=== PATIENT | female | born 1975 | race Caucasian/White ===

== ENCOUNTER 2023-10-14 15:36 | Inpatient (IN) | payer SELFPAY ==
[~2023-10-14] VITALS: Ht 162.6 cm; Wt 70.3 kg
[2023-10-14] MEDS ORDERED: ONDANSETRON HCL 4MG/2ML INJ IV STA (15:46)
[2023-10-14] MEDS: SODIUM CHLORIDE 0.9% 1,000 ML IV ONE (16:00)
[2023-10-14 17:07] LABS: ALANINE AMINOTRANSFERASE 13 IU/L (10-49); ALBUMIN 4.2 g/dL (3.2-4.8); ASPARTATE AMINOTRANSFERASE 38 IU/L (<34); BILIRUBIN TOTAL 0.2 mg/dL (0.1-1.0); CALCIUM 8.4 mg/dL (8.7-10.4); CARBON DIOXIDE 25 mEq/L (21-32); CHLORIDE 106 mEq/L (98-107); CREATININE 0.6 mg/dL (0.6-1.0); GLUCOSE 103 mg/dL (70-105); POTASSIUM 4.5 mEq/L (3.5-5.1); PROTEIN TOTAL 6.8 g/dL (6.0-8.3); SODIUM 138 mEq/L (136-145); TROPONIN I HIGH SENSITIVITY 6 ng/L (3.0-34); UREA NITROGEN BLOOD 11 mg/dL (9-23)
[2023-10-14 17:08] LABS: HCG SCREEN NEGATIVE
[2023-10-14] MEDS: NOREPINEPHRINE 8MG/250ML PMX 250 ML IV PRN (17:14)
[2023-10-14] MEDS: FENTANYL CITRATE/PF 50MCG/ML 2ML VIAL IV ONE (17:48)
[2023-10-14] MEDS ORDERED: PROPOFOL 200MG/20ML VIAL IV ONE (19:02)
[2023-10-14] MEDS ORDERED: MIDAZOLAM HCL 2 MG/2 ML VIAL ONE (19:03)
[2023-10-14] MEDS ORDERED: ONDANSETRON HCL 4MG/2ML INJ ONE (19:06)
[2023-10-14] MEDS ORDERED: DEXAMETHASONE 4MG/ML 1ML VIAL ONE (19:06)
[2023-10-14] MEDS ORDERED: SUCCINYLCHOLINE CHLORIDE 200MG/10ML IV ONE (19:06)
[2023-10-14] MEDS ORDERED: ROCURONIUM BROMIDE 10MG/ML VIAL 5ML IV ONE (19:07)
[2023-10-14] MEDS ORDERED: GLYCOPYRROLATE 0.2 MG/ML 2ML VIAL ONE (19:07)
[2023-10-14] MEDS ORDERED: FENTANYL CITRATE/PF 50MCG/ML 2ML VIAL ONE ×2 (19:08→20:20)
[2023-10-14] MEDS ORDERED: FENTANYL CITRATE/PF 50MCG/ML 2ML VIAL IV PRN (19:15)
[2023-10-14] MEDS ORDERED: SUGAMMADEX SODIUM 200 MG/2 ML VIAL IV NR (19:15)
[2023-10-14] MEDS ORDERED: MEPERIDINE HCL/PF 25MG/ML CPJ IV PRN (19:15)
[2023-10-14] MEDS ORDERED: ONDANSETRON HCL 4MG/2ML INJ IV PRN ×2 (19:15)
[2023-10-14] MEDS ORDERED: HYDROMORPHONE HCL/PF 2MG/ML CPJ IV PRN (19:15)
[2023-10-14] MEDS ORDERED: CLINDAMYCIN 600MG PREMIX 50 ML IV ONE (19:18)
[2023-10-14] MEDS ORDERED: KETOROLAC 30MG/ML VIAL ONE (19:28)
[2023-10-14] MEDS ORDERED: POLYMYXIN B SULFATE 500000 UNITS/VIAL ONE (19:29)
[2023-10-14] MEDS ORDERED: SKIN ADHESIVE 0.7 GM EA TOP ONE ×2 (19:29→19:30)
[2023-10-14] MEDS ORDERED: BUPIVACAINE HCL/PF 0.5% (5MG/ML) 10ML ONE (19:30)
[2023-10-14 19:58] LABS: BASOPHILS % 0.2 % (0.0-2.0); EOSINOPHILS % 0.1 % (0.0-5.0); HEMATOCRIT. 26.8 % (36.0-48.0); HEMOGLOBIN. 8.2 g/dL (12.0-16.0); LYMPHOCYTES % 9.7 % (20.0-50.0); MEAN CORPUSCULAR HEMOGLOBIN 20.1 pg (28.0-32.0); MEAN CORPUSCULAR HGB CONC 30.6 g/dL (31.0-37.0); MEAN CORPUSCULAR VOLUME 65.9 fL (81.0-99.0); MEAN PLATELET VOLUME 8.3 fl (7.4-10.4); MONOCYTES % 2.1 % (2.0-8.0); NEUTROPHILS % 87.9 % (40.0-76.0); PLATELET 346 x1000/uL (130-400); RED BLOOD CELL COUNT 4.07 mill/uL (4.2-5.4); RED CELL DISTRIBUTION WIDTH 25.3 % (11.6-14.6); WHITE BLOOD COUNT 11.6 x1000/uL (4.5-11.0)
[2023-10-14 20:00] LABS: ADD RBC MORPHOLOGY YES; DIFFERENTIAL COMMENT 1
[2023-10-14 20:18] LABS: HYPOCHROMASIA 2+; PLATELET ESTIMATE NORMAL
[2023-10-14 20:19] LABS: ANISOCYTOSIS 2+; MICROCYTOSIS 3+; OVALOCYTES 1+
[2023-10-14] MEDS ORDERED: PIPERACILLIN/TAZO 3.375G/50ML 50 ML IV SCH (22:00)
[2023-10-14] MEDS: MORPHINE SULFATE 4 MG/ML CPJ (NOT FOR IM USE) IV PRN (22:04)
[2023-10-14] MEDS ORDERED: CLONIDINE 0.1MG TABLET PO PRN (22:30)
[2023-10-14] MEDS: SODIUM CHLORIDE 0.9% 1,000 ML IV SCH (22:30)
[2023-10-14] MEDS: DEXT 5%/0.45% NACL KCL 20MEQ/L 1,000 ML IV SCH (22:54)
[2023-10-14 23:26] VITALS: BP 91/45; PULSE 88; RESP 18; TEMP 98.6
[2023-10-14 23:47] LABS: D-DIMER 1.99 mg/L FEU (<0.50); PROTHROMBIN TIME 11.2 sec (9.6-11.0)
[2023-10-15] VITALS: BP 98/40; PULSE 88; RESP 20; TEMP 98.6
[2023-10-15 00:08] LABS: TROPONIN I HIGH SENSITIVITY 7 ng/L (3.0-34)
[2023-10-15 04:00] VITALS: BP 90/46; PULSE 90; RESP 20; TEMP 99.7
[2023-10-15] MEDS: MORPHINE SULFATE 2 MG/ML CPJ (NOT FOR IM USE) IV PRN (06:44)
[2023-10-15 08:00] VITALS: BP 123/61; PULSE 91; RESP 17; TEMP 101.7
[2023-10-15] MEDS: METRONIDAZOLE 500 MG PREMIX 100 ML IV SCH (08:58)
[2023-10-15] MEDS: ACETAMINOPHEN 325MG TABLET PO PRN (08:59)
[2023-10-15] MEDS: LEVOFLOXACIN 750MG PREMIX 150 ML IV SCH (08:59)
[2023-10-15] MEDS ORDERED: PIPERACILLIN/TAZO 3.375G/50ML 50 ML IV SCH (09:00)
[2023-10-15] MEDS: CLINDAMYCIN 600MG PREMIX 50 ML IV SCH (10:47)
[2023-10-15 12:00] VITALS: BP 120/70; PULSE 83; RESP 18; TEMP 100
[2023-10-15 16:00] VITALS: BP 101/45; PULSE 95; RESP 17; TEMP 102.2
[2023-10-15] MEDS: HYDROCODONE/ACETAMINOPHEN 5/325MG TABLET PO PRN (17:12)
[2023-10-15 20:00] VITALS: BP 100/44; PULSE 101; RESP 19; TEMP 102.6
[2023-10-16] VITALS: BP 95/41; PULSE 102; RESP 19; TEMP 100.6
[2023-10-16 04:00] VITALS: BP 99/47; PULSE 97; RESP 19; TEMP 99.7
[2023-10-16 07:26] LABS: CALCIUM 8.1 mg/dL (8.7-10.4); CARBON DIOXIDE 23 mEq/L (21-32); CHLORIDE 107 mEq/L (98-107); CREATININE 0.6 mg/dL (0.6-1.0); GLUCOSE 120 mg/dL (70-105); POTASSIUM 3.3 mEq/L (3.5-5.1); SODIUM 135 mEq/L (136-145); UREA NITROGEN BLOOD 8 mg/dL (9-23)
[2023-10-16 07:32] LABS: HEMATOCRIT. 23.7 % (36.0-48.0); HEMOGLOBIN. 7.4 g/dL (12.0-16.0); MEAN CORPUSCULAR HEMOGLOBIN 20.8 pg (28.0-32.0); MEAN CORPUSCULAR HGB CONC 31.2 g/dL (31.0-37.0); MEAN CORPUSCULAR VOLUME 66.6 fL (81.0-99.0); MEAN PLATELET VOLUME 9.1 fl (7.4-10.4); PLATELET 241 x1000/uL (130-400); RED BLOOD CELL COUNT 3.56 mill/uL (4.2-5.4); RED CELL DISTRIBUTION WIDTH 25.8 % (11.6-14.6); WHITE BLOOD COUNT 13.5 x1000/uL (4.5-11.0)
[2023-10-16 08:23] LABS: DIFFERENTIAL COMMENT 1
[2023-10-16 10:21] LABS: ANISOCYTOSIS 2+; HYPOCHROMASIA 2+; MICROCYTOSIS 2+; OVALOCYTES 1+; PLATELET ESTIMATE NORMAL
[2023-10-16] MEDS ORDERED: IOHEXOL-350 100 ML BOTTLE ONE (12:53)
[2023-10-16] MEDS ORDERED: SODIUM CHLORIDE 0.9% 1,000 ML IV SCH (14:46)
[2023-10-16] MEDS: POTASSIUM CHLORIDE 20MEQ TABLET SR PO NR (14:54)
[2023-10-16] MEDS ORDERED: NALOXONE HCL 0.4MG/ML VIAL IV PRN (15:00)
[2023-10-16 17:37] LABS: CLARITY URINE CLEAR (CLEAR); COLOR URINE YELLOW (YELLOW); GLUCOSE URINE NEGATIVE (NEGATIVE); KETONES URINE NEGATIVE (NEGATIVE); LEUKOCYTE ESTERASE URINE TRACE (NEGATIVE); NITRITE URINE NEGATIVE (NEGATIVE); OCCULT BLOOD URINE NEGATIVE (NEGATIVE); PROTEIN URINE TRACE (NEGATIVE); SPECIFIC GRAVITY URINE 1.014 (1.005-1.030); UROBILINOGEN URINE 0.2 E.U./dL (0.2-1.0)
[2023-10-16 18:20] LABS: BACTERIA URINE 1+; RBC URINE 0-2 /hpf (0-2); SQUAMOUS EPITHELIAL CELL URINE 1+ /lpf (RARE/1+); WBC URINE 0-2 /hpf (0-2)
[2023-10-16 20:00] VITALS: BP 101/47; PULSE 109; RESP 18; TEMP 101.5
[2023-10-16] MEDS ORDERED: IBUPROFEN 800MG TABLET PO PRN (23:45)
[2023-10-17] VITALS: BP 107/50; PULSE 89; RESP 19; TEMP 101.3
[2023-10-17] MEDS: IBUPROFEN 400MG TABLET PO PRN (00:31)
[2023-10-17] MEDS: HYDROCODONE/ACETAMINOPHEN 5/325MG TABLET PO PRN (00:44)
[2023-10-17 04:00] VITALS: BP 90/48; PULSE 73; RESP 18; TEMP 98.2
[2023-10-17] MEDS ORDERED: IBUPROFEN 800MG TABLET PO PRN (07:45)
[2023-10-17 08:00] VITALS: BP 94/51; PULSE 76; RESP 17; TEMP 98.1
[2023-10-17 10:02] LABS: BASOPHILS % 0.1 % (0.0-2.0); EOSINOPHILS % 1.1 % (0.0-5.0); HEMATOCRIT. 24.8 % (36.0-48.0); HEMOGLOBIN. 7.7 g/dL (12.0-16.0); LYMPHOCYTES % 8.4 % (20.0-50.0); MEAN CORPUSCULAR HEMOGLOBIN 20.7 pg (28.0-32.0); MEAN CORPUSCULAR HGB CONC 31.1 g/dL (31.0-37.0); MEAN CORPUSCULAR VOLUME 66.5 fL (81.0-99.0); MEAN PLATELET VOLUME 9.1 fl (7.4-10.4); MONOCYTES % 4.6 % (2.0-8.0); NEUTROPHILS % 85.8 % (40.0-76.0); PLATELET 230 x1000/uL (130-400); RED BLOOD CELL COUNT 3.74 mill/uL (4.2-5.4); RED CELL DISTRIBUTION WIDTH 26.7 % (11.6-14.6); WHITE BLOOD COUNT 11.1 x1000/uL (4.5-11.0)
[2023-10-17] MEDS: ONDANSETRON HCL 4MG/2ML INJ IV PRN (10:18)
[2023-10-17 10:21] LABS: DIFFERENTIAL COMMENT 1
[2023-10-17 10:23] LABS: CALCIUM 8.4 mg/dL (8.7-10.4); CARBON DIOXIDE 23 mEq/L (21-32); CHLORIDE 107 mEq/L (98-107); CREATININE 0.5 mg/dL (0.6-1.0); GLUCOSE 133 mg/dL (70-105); POTASSIUM 3.3 mEq/L (3.5-5.1); SODIUM 136 mEq/L (136-145); UREA NITROGEN BLOOD 7 mg/dL (9-23)
[2023-10-17 12:00] VITALS: BP 106/49; PULSE 75; RESP 18; TEMP 98.8
[2023-10-17] MEDS ORDERED: LEVO750T68 MT (12:42)
[2023-10-17] MEDS ORDERED: METR-167 MT (12:42)
[2023-10-17] MEDS ORDERED: HYDR-4001 MT (12:42)
[2023-10-17 16:00] VITALS: BP 121/52; PULSE 72; RESP 19; TEMP 98.6
[2023-10-17 20:00] VITALS: BP 113/46; PULSE 90; RESP 18; TEMP 96.4
[2023-10-18] VITALS: BP 99/44; PULSE 103; RESP 18; TEMP 99.3
[2023-10-18 04:00] VITALS: BP 103/45; PULSE 87; RESP 18; TEMP 98.6
[2023-10-18 08:00] VITALS: BP 93/46; PULSE 70; RESP 18; TEMP 98.9
[2023-10-18 10:03] VITALS: BP 103/45; PULSE 87; TEMP 98.6; O2SAT 100
[2023-10-18 10:08] VITALS: BP 103/45; PULSE 87; TEMP 98.6; O2SAT 100
[2023-10-18 12:00] VITALS: BP 94/47; PULSE 74; RESP 18; TEMP 98.6
== END 2023-10-18 14:12 | disposition home or self-care (01) | DRG 710 ==
LOC: ER 15:36 → EDBEDREQ 18:06 → EDBEDREQTM 18:06 → 6EST 18:07
PROVIDERS: ADMIT Internal Medicine; ATTEND Internal Medicine
PROC: 0DTJ4ZZ Resection of Appendix, Percutaneous Endoscopic Approach (ICD-10-PCS; principal; 2023-10-14)
DX: A41.9 Sepsis, unspecified organism (principal); K35.891 Other acute appendicitis without perforation, with gangrene; K52.9 Noninfective gastroenteritis and colitis, unspecified; K50.90 Crohn's disease, unspecified, without complications; N39.0 Urinary tract infection, site not specified; Z98.51 Tubal ligation status; Z88.0 Allergy status to penicillin
CPT/HCPCS: 36415; 71045; 71275; 74174; 80048; 80053; 81003; 84145; 84484; 84703; 85025; 85379; 87426; 88304; 99285; C1893; J0330; J1100; J1885; J1956; J2250; J2270; J2405; J2704; J3010; J3490; J7030; J7517; Q9967